=== PATIENT | male | born 1995 | race Caucasian/White ===

== ENCOUNTER 2022-10-05 18:17 | Emergency (ER) | payer OTHER ==
[2022-10-05] MEDS ORDERED: KETOROLAC 30 MG/ML INJ ONE (18:45)
--- NOTE | 2022-10-05 18:59 | RAD REPORT ---
EXAM DESCRIPTION: RAD - Foot Left 3 View - 10/05/2022 6:53 pm CLINICAL HISTORY: PAIN COMPARISON: No comparisons FINDINGS: Small plantar calcaneal spur is present. No acute fracture or dislocation seen.
--- NOTE | 2022-10-05 20:31 | RAD REPORT ---
EXAM DESCRIPTION: US - Lower Extremity Artery Uni Ltd - 10/05/2022 8:15 pm CLINICAL HISTORY: PAIN COMPARISON: No comparisons FINDINGS: Doppler interrogation was performed of the left lower extremity arterial system. Normal triphasic waveforms are visualized. No stenosis or occlusion seen. IMPRESSION: Unremarkable study.
--- NOTE | 2022-10-05 20:31 | RAD REPORT ---
EXAM DESCRIPTION: US - Extremity Venous Uni Ltd - 10/05/2022 8:15 pm CLINICAL HISTORY: PAIN Leg swelling and edema. COMPARISON: Upper Lower Extrem Art Multi dated 09/19/2019No comparisonsNo comparisons FINDINGS: Left lower extremity venous system was interrogated with Doppler technique. Normal flow, c ompressibility and augmentation was noted. There is no DVT present. IMPRESSION: No evidence of left lower extremity deep venous thrombosis.
--- NOTE | 2022-10-05 20:41 | ER ---
Nurse's Notes [facility] Name: Valdemar Lubin Age: 27 yrs Sex: Male : 1995 Arrival Date: 10/05/2022 Time: 18:17 Bed 12 Private MD: Diagnosis: Pain in left ankle and joints of left foot Presentation: 10/05 18:29 Chief complaint: Left foot pain x 5 days, worse over the last 2 days. Coronavirus hb screen: At this time, the client does not indicate any symptoms associated with coronavirus-19. Ebola Screen: No symptoms or risks identified at this time. Initial Sepsis Screen: Does the patient meet any 2 criteria? No. Patient's initial sepsis screen is negative. Does the patient have a suspected source of infection? No. Patient's initial sepsis screen is negative. Risk Assessment: Do you want to hurt yourself or someone else? Patient reports no desire to harm self or others. Onset of symptoms was October 01, 2022. 18:29 Method Of Arrival: Ambulatory hb 18:29 Acuity: DANIELA 3 hb Historical: - Allergies: 18:28 No Known Allergies; hb - Home Meds: 18:28 None [Active]; hb - PMHx: 18:28 None; hb - PSHx: 18:31 Knee - Right; hb - Immunization history:: Adult Immunizations up to date. - Social history:: Smoking status: . Screenin:26 [facility] ED Fall Risk Assessment (Adult) History of falling in the last 3 months, mb9 including since admission No falls in past 3 months (0 pts) Confusion or Disorientation No (0 pts) Intoxicated or Sedated No (0 pts) Impaired Gait No (0 pts) Mobility Assist Device Used No (0 pt) Altered Elimination No (0 pt) Score/Fall Risk Level 0 - 2 = Low Risk Oriented to surroundings, Maintained a safe environment, Educated pt \T\ family on fall prevention, incl call for assistance when getting out of bed. Abuse screen: Denies threats or abuse. Nutritional screening: No deficits noted. Tuberculosis screening: No symptoms or risk factors identified. Assessment: 19:25 General: Appears in no apparent distress. Pain: Complains of pain in left foot Pain mb9 radiates to left leg Pain began suddenly, Is continuous, Aggravated by increased activity. Neuro: Ibarra Agitation-Sedation Scale (RASS): 0 - Alert and Calm Level of Consciousness is awake, alert, obeys commands, Oriented to person, place, time, situation, Appropriate for age. Respiratory: Airway is patent. Derm: Skin is pink, warm \T\ dry. Musculoskeletal: Range of motion: intact in all extremities. 20:51 Reassessment: Patient and/or family updated on plan of care and expected duration. Pain mb9 level reassessed. Patient is alert, oriented x 3, equal unlabored respirations, skin warm/dry/pink. Patient states feeling better. Patient states symptoms have improved. Vital Signs: 18:30 BP 128 / 89; Pulse 100; Resp 18; Temp 98.3; Pulse Ox 98% ; Weight 92.99 kg; Height 5 mb9 ft. 10 in. ; Pain 8/10; 20:51 BP 126 / 84; Pulse 88; Resp 18; Pulse Ox 98% on R/A; mb9 18:30 Body Mass Index 29.42 (92.99 kg, 177.8 cm) mb9 18:30 Pain Scale: Adult mb9 ED Course: 18:27 Patient arrived in ED. im 18:28 [facility] Mueller [facility]-C [facility] kb 18:28 Deon Bowles MD is Attending Physician. kb 18:29 Arm band placed on. hb 18:30 Triage completed. hb 18:33 Claribel Bain, RN is Primary Nurse. mb9 18:54 Foot Left 3 View XRAY In Process Unspecified. EDMS 19:26 Placed in gown. Bed in low position. Call light in reach. Side rails up X 1. Client mb9 placed on continuous cardiac and pulse oximetry monitoring. NIBP monitoring applied. 19:26 No provider procedures requiring assistance completed. mb9 20:17 US Lower Extremity Artery Uni Ltd In Process Unspecified. EDMS 20:17 US Extremity Venous Unilateral Ltd In Process Unspecified. EDMS 20:51 Patient did not have IV access during this emergency room visit. mb9 Administered Medications: 18:43 Drug: Ketorolac IM 30 mg Route: IM; Site: right deltoid; mb9 20:02 Follow up: Response: No adverse reaction mb9 Medication: 19:26 VIS not applicable for this client. mb9 Outcome: 20:40 Discharge ordered by . kb 20:51 Discharged to home ambulatory. mb9 20:51 Condition: stable 20:51 Discharge instructions given to patient, Instructed on discharge instructions, follow up and referral plans. Demonstrated understanding of instructions, follow-up care, medications, Prescriptions given X 1. 20:51 Patient left the ED. mb9 Signatures: Dispatcher [employer] EDMS Amira Mueller, BERYL-C BERYL-Michelle Betancur RN RN Claribel Bain RN RN mb9 Nayana Zamarripa Corrections: (The following items were deleted from the chart) 18:31 18:28 PSHx: None; hb hb 18:31 18:29 Acuity: DANIELA 4 hb hb 18:32 18:30 92.99 kg; Height 5 ft. 10 in.; BMI: 29.4; Pain 8/10, Adult; hb hb 18:34 18:30 BP 128 / 89; Pulse 00bpm; Resp 18bpm; Pulse Ox 98%; Temp 98.3F; 92.99 kg; Height mb9 5 ft. 10 in.; BMI: 29.4; Pain 8/10, Adult; hb
--- NOTE | 2022-10-05 20:41 | EDPHYS ---
Physician Documentation [facility] Name: Valdemar Lubin Age: 27 yrs Sex: Male : 1995 Arrival Date: 10/05/2022 Time: 18:17 Bed 12 Private MD: ED Physician Deon Bowles HPI: 10/05 20:36 This 27 yrs old Male presents to ER via Ambulatory with complaints of Foot Pain. kb 20:36 The patient has not recently seen a physician. kb 20:36 The patient presents with pain, that is acute. The complaints affect the left foot. kb Context: The problem was sustained at home, resulted from an unknown cause, the patient can fully bear weight, the patient is able to ambulate. Onset: The symptoms/episode began/occurred 5 day(s) ago. Modifying factors: The symptoms are alleviated by nothing, the symptoms are aggravated by weight bearing, movement. Associated signs and symptoms: Pertinent positives: swelling. Severity of symptoms: At their worst the symptoms were moderate, in the emergency department the symptoms are unchanged. The patient has not experienced similar symptoms in the past. 20:39 Pt reports left foot pain for 5 days, worse over the last 2 days. Denies injury or kb trauma. States this has never happened before. Reports intermittent swelling and discoloration that has resolved now. Historical: - Allergies: 18:28 No Known Allergies; hb - Home Meds: 18:28 None [Active]; hb - PMHx: 18:28 None; hb - PSHx: 18:31 Knee - Right; hb - Immunization history:: Adult Immunizations up to date. - Social history:: Smoking status: . ROS: 20:37 Constitutional: Negative for fever, chills, and weight loss. kb 20:37 MS/extremity: Positive for pain, swelling. 20:37 All other systems are negative. Exam: 20:37 Constitutional: This is a well developed, well nourished patient who is awake, alert, kb and in no acute distress. Head/Face: Normocephalic, atraumatic. ENT: Moist Mucous membranes Cardiovascular: Regular rate and rhythm with a normal S1 and S2. No gallops, murmurs, or rubs. No pulse deficits. Respiratory: Respirations even and unlabored. No increased work of breathing. Talking in full sentences Skin: Warm, dry with normal turgor. Normal color. Neuro: Awake and alert, GCS 15, oriented to person, place, time, and situation. Moves all extremities. Normal gait. 20:37 Musculoskeletal/extremity: Extremities: grossly normal except: noted in the dorsum of left foot: pain, ROM: intact in all extremities, Circulation is intact in all extremities. Sensation intact. Weight bearing: able to fully bear weight. Vital Signs: 18:30 BP 128 / 89; Pulse 100; Resp 18; Temp 98.3; Pulse Ox 98% ; Weight 92.99 kg; Height 5 mb9 ft. 10 in. ; Pain 8/10; 20:51 BP 126 / 84; Pulse 88; Resp 18; Pulse Ox 98% on R/A; mb9 18:30 Body Mass Index 29.42 (92.99 kg, 177.8 cm) mb9 18:30 Pain Scale: Adult mb9 MDM: 18:28 Patient medically screened. kb 20:39 Data reviewed: vital signs, nurses notes. kb 20:40 Differential diagnosis: fracture, sprain, arthritis, gout. Counseling: I had a detailed kb discussion with the patient and/or guardian regarding: the historical points, exam findings, and any diagnostic results supporting the discharge/admit diagnosis, radiology results, the need for outpatient follow up, a orthopedic surgeon, to return to the emergency department if symptoms worsen or persist or if there are any questions or concerns that arise at home. 10/05 18:33 Order name: Foot Left 3 View XRAY; Complete Time: 19:01 kb 10/05 18:33 Order name: Lower Extremity Artery Uni Ltd; Complete Time: 20:35 kb 10/05 18:33 Order name: Extremity Venous Unilateral Ltd; Complete Time: 20:35 kb Administered Medications: 18:43 Drug: Ketorolac IM 30 mg Route: IM; Site: right deltoid; mb9 20:02 Follow up: Response: No adverse reaction mb9 Disposition Summary: 10/05/22 20:40 Discharge Ordered Location: Home kb Condition: Stable kb Diagnosis - Pain in left ankle and joints of left foot kb Followup: kb - With: Emergency Department - When: As needed - Reason: Worsening of condition Followup: kb - With: Private Physician - When: 2 - 3 days - Reason: Recheck today's complaints, Continuance of care, Re-evaluation by your physician Discharge Instructions: - Discharge Summary Sheet kb - Musculoskeletal Pain kb Forms: - Medication Reconciliation Form kb - Thank You Letter kb - Antibiotic Education kb - Prescription Opioid Use kb - Work release form mb9 Prescriptions: - Diclofenac Sodium 75 mg Oral tablet,delayed release (DR/EC) - take 1 tablet by ORAL route 2 times per day As needed; 30 tablet; Refills: 0, kb Product Selection Permitted Addendum: 10/08/2022 15:59 Co-signature as Attending Physician, Deon Bowles MD I reviewed the patient's care r t provided by the Advanced Practice Provider and agree with the diagnosis and treatment plan. Signatures: Dispatcher [employer] EDAmira Canales, FLOW NURSE-C FLOW NURSE-Michelle Betancur RN RN Claribel Ricketts RN RN mb9 Deon Bowles MD MD rt Corrections: (The following items were deleted from the chart) 10/05 18:31 18:28 PSHx: None; hb hb 20:37 20:36 The patient presents with pain, kb kb
[2022-10-05 21:18] VITALS: TEMP 98.3; O2SAT 98
[2022-10-05 21:20] VITALS: BP 126/84
== END 2022-10-05 20:51 | disposition home or self-care (01) ==
LOC: ER 18:17
DX: M25.572 Pain in left ankle and joints of left foot (principal)
CPT/HCPCS: 93926; 93971; 96372; 99284